=== PATIENT | female | born 1960 | race Caucasian/White ===

== ENCOUNTER → 2024-07-25 | Outpatient (REF) | payer OTHER | LOC: US 13:51 | PROVIDERS: ATTEND Internal Medicine | DX: R10.10 Upper abdominal pain, unspecified (principal); K82.9 Disease of gallbladder, unspecified | CPT/HCPCS: 76705 ==

== ENCOUNTER → 2024-10-20 | Outpatient (REF) | payer MEDICARE ==
[2024-10-20 11:14] LABS: CREATININE, SERUM 1.68 mg/dL (0.57-1.11)
== END ==
LOC: CT 09:52
PROVIDERS: ATTEND Internal Medicine
DX: K43.9 Ventral hernia without obstruction or gangrene (principal)
CPT/HCPCS: 36415; 74176; 82565; 84520